=== PATIENT | female | born 1980 | race Caucasian/White ===

== ENCOUNTER 2018-08-08 16:05 | Emergency (ER) | payer MEDICAID ==
[~2018-08-08] VITALS: Ht 160 cm; Wt 58.1 kg
[~2018-08-08 16:05] MED LIST: CETI-1 PO; CYCL-394 PO; HYDR-3965 PO; HYDR-569 PO; IBUP-1984 PO; MACROBID PO; NAPR-1144 PO
[2018-08-08 16:36] VITALS: BP 161/72
== END 2018-08-08 21:07 | disposition home or self-care (01) ==
LOC: ER 16:05
DX: F23 Brief psychotic disorder (principal); F41.9 Anxiety disorder, unspecified; F12.90 Cannabis use, unspecified, uncomplicated; F15.90 Other stimulant use, unspecified, uncomplicated; Z90.49 Acquired absence of other specified parts of digestive tract; Z98.890 Other specified postprocedural states
CPT/HCPCS: 99284

== ENCOUNTER 2019-11-27 08:08 | Emergency (ER) | payer MEDICAID ==
[~2019-11-27] VITALS: Ht 162.6 cm; Wt 62.0 kg
[2019-11-27] MEDS ORDERED: AMOX-117 PO (10:33)
[2019-11-27 10:36] VITALS: BP 103/58
[2019-11-27] MEDS ORDERED: LIDOcaine Viscous 15ml cup MM PRN (10:40)
== END 2019-11-27 10:47 | disposition home or self-care (01) ==
LOC: ER 08:08
DX: J02.0 Streptococcal pharyngitis (principal); B95.0 Streptococcus, group A, as the cause of diseases classified elsewhere; F12.90 Cannabis use, unspecified, uncomplicated; F15.90 Other stimulant use, unspecified, uncomplicated; F41.9 Anxiety disorder, unspecified; Z90.49 Acquired absence of other specified parts of digestive tract; Z98.890 Other specified postprocedural states; Z88.8 Allergy status to other drugs, medicaments and biological substances; Z79.899 Other long term (current) drug therapy
CPT/HCPCS: 71045; 87880; 99284

== ENCOUNTER 2022-01-19 00:46 | Emergency (ER) | payer MEDICAID ==
[~2022-01-19] VITALS: Ht 160 cm; Wt 61.4 kg
[2022-01-19] MEDS ORDERED: cephalexin 250mg capsule PO ONE (01:10)
[2022-01-19] MEDS ORDERED: TETanus/Pertussis (Acell)/Diphther VAC/PF (Tdap-Adult) 0.5ml syringe IMVAC ONE (01:50)
[2022-01-19] MEDS ORDERED: CEPH-585 PO (03:05)
[2022-01-19 03:16] VITALS: BP 93/45
== END 2022-01-19 03:18 | disposition home or self-care (01) ==
LOC: ER 00:47
DX: S01.311A Laceration without foreign body of right ear, initial encounter (principal); F12.90 Cannabis use, unspecified, uncomplicated; F15.20 Other stimulant dependence, uncomplicated; Z88.5 Allergy status to narcotic agent; Z90.49 Acquired absence of other specified parts of digestive tract; W19.XXXA Unspecified fall, initial encounter; Y93.89 Activity, other specified; Y92.89 Other specified places as the place of occurrence of the external cause; Y99.8 Other external cause status
CPT/HCPCS: 12014; 70450; 90471; 90715; 93005; 99284; A6449

== ENCOUNTER 2023-05-08 14:35 | Emergency (ER) | payer MEDICAID ==
[~2023-05-08] VITALS: Ht 160 cm; Wt 61.9 kg
[2023-05-08 14:56] VITALS: BP 128/79; PULSE 69; RESP 16; TEMP 98.8; O2SAT 99
[2023-05-08] MEDS ORDERED: IBUP-1984 PO (16:31)
[2023-05-08] MEDS ORDERED: CEPH500C2 PO (16:31)
[2023-05-08] MEDS ORDERED: POLOS EACHEYE (16:31)
== END 2023-05-08 16:57 | disposition home or self-care (01) ==
LOC: ER 14:36
DX: H10.9 Unspecified conjunctivitis (principal); F12.90 Cannabis use, unspecified, uncomplicated; F15.90 Other stimulant use, unspecified, uncomplicated; F41.9 Anxiety disorder, unspecified; Z90.49 Acquired absence of other specified parts of digestive tract; Z79.2 Long term (current) use of antibiotics; Z79.899 Other long term (current) drug therapy; Z88.8 Allergy status to other drugs, medicaments and biological substances
CPT/HCPCS: 99283